=== PATIENT | male | born 1975 | race Caucasian/White ===

== ENCOUNTER 2023-11-26 10:39 | Day surgery (SDC) | payer BC, MEDICAID, SELFPAY ==
[2023-11-26 10:49] VITALS: BP 145/88; PULSE 73; RESP 18; TEMP 36.7; O2SAT 98
[2023-11-26] MEDS: sodium chloride 0.9% 1,000 ML 30 ML IV (11:05)
--- NOTE | 2023-11-26 11:07 | ANES.PREANE2 ---
Pre-Anesthetic Assessment Height/Weight: Height 1.8 m Weight 90.265 kg Temp Pulse Resp BP Pulse Ox O2 Del Method 98.0 F 73 18 145/88 98 Room Air 11/26/23 10:49 11/26/23 10:49 11/26/23 10:49 11/26/23 10:49 11/26/23 10:49 11/26/23 10:49 Operation Date: 11/26/23 11:30 Proposed Procedures p Colonoscopy 62370, G0121, Z12.11(Not Applicable) - Stefano Jones DO Familial anesthetic complications: None Was Beta Tiffanie taken within 24 hours: N/A Was Clonidine taken within 24 hours: N/A Last intake: Intake Last Liquid Date 11/25/23 Last Liquid Time 20:30 Last Solid Date 11/24/23 Last Solid Time 18:30 Social No alcohol and No tobacco Exam alert, oriented x 3, clear to auscultation bilaterally and regular rate & rhythm Airway Mallampati: Class II Dentition: chipped CV/HEM Hypertension Anesthetic Plan ASA status: 2 Anesthesia: MAC Risk of > 500 ml blood loss (7ml/kg in children): No Medications/Allergies Home Medications Medication Instructions Recorded Confirmed Last Taken Type nitroglycerin 0.4 mg sublingual 0.4 mg sublingual Q5MIN PRN Chest 11/24/23 11/24/23 Unknown History tablet Pain tadalafil 2.5 mg tablet 2.5 mg PO PRN PRN Erectile 11/24/23 11/24/23 11/22/23 History Dysfunction amlodipine 5 mg tablet 5 mg PO DAILY 11/26/23 11/26/23 11/24/23 History Allergies Allergy/AdvReac Type Severity Reaction Status Date / Time No Known Allergies Allergy Verified 11/26/23 10:48 Current Medications Generic Name Dose Route Start Last Admin Trade Name Freq PRN Reason Stop Dose Admin Sodium Chloride 1,000 mls @ 30 mls/hr 11/26/23 10:45 11/26/23 11:05 Sodium Chloride 0.9% IV 11/27/23 10:44 30 mls/hr .Q24H ZEYNEP Administration PFSH Anesthesia Family History Mother Migraines Depression Father Hypertension Social History Smoking and tobacco/nicotine status: current some day tobacco/nicotine user cigars Cigars smoked per week: 0 Years smoked cigars: 4 Cigar details: 1 cigar a month Data Anesthesia Cardiac Studies: No Data to Display
[2023-11-26] MEDS: ondansetron 2 mg/ML SDV 2 mL 4 MG IVP (11:08)
--- NOTE | 2023-11-26 11:27 | PM.HP ---
Providers/Chief Complaint Primary Care Provider: Odalis Ochoa Chief Complaint: Z12.11 History of Present Illness Gen Kaiser is a 48 year old male Review of Systems General: Reports: 10 or more systems reviewed and unremarkable except in HPI and below Medications/Allergies Home Medications Medication Instructions Recorded Confirmed Last Taken Type nitroglycerin 0.4 mg sublingual 0.4 mg sublingual Q5MIN PRN Chest 11/24/23 11/24/23 Unknown History tablet Pain tadalafil 2.5 mg tablet 2.5 mg PO PRN PRN Erectile 11/24/23 11/24/23 11/22/23 History Dysfunction amlodipine 5 mg tablet 5 mg PO DAILY 11/26/23 11/26/23 11/24/23 History Allergies Allergy/AdvReac Type Severity Reaction Status Date / Time No Known Allergies Allergy Verified 11/26/23 10:48 PFSH Acute PFSH: Family History Mother Migraines Depression Father Hypertension Social History Smoking and tobacco/nicotine status: current some day tobacco/nicotine user cigars Cigars smoked per week: 0 Years smoked cigars: 4 Cigar details: 1 cigar a month Vitals/I&O/Wt Last Vital Signs Temp 98.0 F 11/26/23 10:49 Pulse 73 11/26/23 10:49 Resp 18 11/26/23 10:49 BP 145/88 11/26/23 10:49 Pulse Ox 98 11/26/23 10:49 O2 Del Method Room Air 11/26/23 10:49 Weight last 48 hrs Weight 199 lb A&P Assessment and plan (1) Colon cancer screening: Plan Colonoscopy Attestations Medical Necessity Statement*: Home Coding Level of Care Code Acute Code for Chg Fwd Diagnoses Colon cancer screening Z12.11
[2023-11-26 11:40] VITALS: BP 114/68; PULSE 68; RESP 14; TEMP 36.2; O2SAT 97
[2023-11-26 11:55] VITALS: BP 115/77; PULSE 72; RESP 18; O2SAT 98
--- NOTE | 2023-11-26 12:20 | ANE.PACU2 ---
Inpatient post-anesthesia follow up: Airway intact: Yes Vital signs: Temperature 97.2 F Pulse Rate 72 Respiratory Rate 18 Blood Pressure 115/77 Pulse Oximetry 98 Oxygen Delivery Me thod Room Air Oxygen Flow Rate Fraction of Inspir ed Oxygen Hydration adequate: Yes Nausea and vomiting: No Pain level: 1 Mental status: Baseline
== END 2023-11-26 12:24 | disposition home or self-care (01) ==
PROVIDERS: PCP Nurse Practitioner Family; Visit Provider Surgery
PROC: 0DJD8ZZ Inspection of Lower Intestinal Tract, Via Natural or Artificial Opening Endoscopic (ICD-10-PCS; CPT 45378; principal; 2023-11-26 11:30)
DX: Z12.11 Encounter for screening for malignant neoplasm of colon (principal); F17.200 Nicotine dependence, unspecified, uncomplicated; I10 Essential (primary) hypertension
CPT/HCPCS: 45378; J2405; J2704; J7030